=== PATIENT | male | born 1990 | race Caucasian/White ===

== ENCOUNTER 2019-05-18 09:36 | Inpatient (IN) | payer OTHER, SELFPAY ==
[2019-05-18] MEDS ORDERED: HYDROmorphone 0.5 MG/0.5 ML SYRINGE ONE ×2 (09:43)
[2019-05-18] MEDS ORDERED: Adacel (T-DAP) 0.5 ML SYRINGE ONE (09:45)
[2019-05-18 09:57] LABS: #Basophils 0.1 thou/uL (0.0-0.2); #Eosinphils 0.2 thou/uL (0.0-0.7); #Lymphocytes 1.8 thou/uL (1.20-3.40); #Monocytes 0.9 thou/uL (0.11-0.59); #Neutrophils 16.5 thou/uL (1.40-6.50); %Basophils 0.3 % (0.0-1.0); %Eosinophils 1.1 % (0.0-10.0); %Lymphocytes 9.4 % (21.0-51.0); %Monocytes 4.7 % (0.0-10.0); %Neutrophils 84.5 % (42.0-75.0); Hemoglobin 15.8 g/dL (14.0-18.0); Mean Corpuscular HGB CONC 32.5 g/dL (32.0-36.0); Mean Corpuscular Hemoglobin 29.1 pg (27.0-31.0); Mean Corpuscular Volume 89.6 fL (78.0-98.0); Mean Platelet Volume 7.9 fL (7.4-10.4); Platelet Count 319 thou/uL (130-400); RBC Distribution Width 11.9 % (11.5-14.5); Red Blood Cell (RBC) Count 5.44 mill/uL (4.70-6.10); White Blood Cell (WBC) Count 19.6 thou/uL (4.8-10.8)
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
[2019-05-18 10:15] LABS: ALT (SGPT) 70 U/L (8-55); AST (SGOT) 43 U/L (5-34); Albumin 4.5 g/dL (3.5-5.0); Alkaline Phosphatase 85 U/L (40-110); Anion Gap 13 mmol/L (10-20); BUN (Urea Nitrogen) 17 mg/dL (8.9-20.6); Bilirubin, Total 0.4 mg/dL (0.2-1.2); Calc. Creatinine Clearance 0 mL/min (70-130); Calcium 8.9 mg/dL (7.8-10.44); Carbon Dioxide 22 mmol/L (22-29); Chloride 108 mmol/L (98-107); Estimated GFR-MDRD Greater than 90; Globulin 2.7 g/dL (2.4-3.5); Glucose 105 mg/dL (70-105); Potassium 4.4 mmol/L (3.5-5.1); Protein, Total 7.2 g/dL (6.0-8.3); Sodium 139 mmol/L (136-145)
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
[2019-05-18] MEDS ORDERED: Lidocaine 1% w/Epinephrine 1:100K 20 ML VIAL ONE (11:32)
[2019-05-18] MEDS ORDERED: Lidocaine 1% (PF) 30 ML VIAL ONE (11:50)
[2019-05-18] MEDS ORDERED: Sodium Chloride For Inhalation 0.9% 3 ML NEB ONE (12:05)
[2019-05-18] MEDS ORDERED: Bacitracin 1 PK ONE (12:20)
[2019-05-18] MEDS ORDERED: Proparacaine 0.5% Opth 15 ML BOT ONE ×2 (12:35→12:45)
[2019-05-18] MEDS ORDERED: Fluorescein Opthalmic Strip ONE ×2 (12:35→12:45)
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
[2019-05-18] MEDS ORDERED: traMADol HCl 50 MG TAB PO PRN (13:17)
[2019-05-18] MEDS ORDERED: Promethazine HCl 25 MG/ML VIAL IM PRN ×2 (13:17)
[2019-05-18] MEDS ORDERED: Ondansetron PF 4 MG/2 ML Vial IVP PRN (13:17)
[2019-05-18] MEDS ORDERED: Dextrose 5% in Water 1,000 ML IV PRN (13:17)
[2019-05-18] MEDS ORDERED: hydrALAZINE 20 MG/ML VIAL SLOW IVP PRN (13:17)
[2019-05-18] MEDS ORDERED: Dextrose 50% Abboject 50 ML SYRINGE SLOW IVP PRN (13:17)
[2019-05-18] MEDS ORDERED: traMADol HCl 50 MG TAB ONE (13:59)
[2019-05-18] MEDS ORDERED: Acetaminophen 500 MG TAB ONE (13:59)
[2019-05-18] MEDS ORDERED: Scopolamine 1.5 mg/72 hour Patch TD SCH (14:00)
[2019-05-18] MEDS: traMADol HCl 50 MG TAB PO PRN ×2 (14:01→19:40)
[2019-05-18] MEDS: Acetaminophen 500 MG TAB PO SCH ×2 (14:02→20:02)
[2019-05-18] MEDS: Sodium Chloride 0.9% 1,000 ML IV SCH ×2 (14:05→22:24)
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
--- NOTE | 2019-05-18 17:16 | PDOC.OP ---
Operative Note - Operative Note Operative Note: Procedure Name: Laceration Repair Indication: Reduce Risk of Infection Location: Left Upper Extremity (Triceps Region) Pre-Procedure Diagnosis: Laceration Post-Procedure Diagnosis: Repaired Laceration PROCEDURE: The appropriate timeout was taken. The area was prepped and draped in the usual sterile fashion. Local anesthesia was achieved using 40 cc of Lidocaine 1% with epinephrine. The wound was copiously irrigated. 4 2-0 Vicryl subcutaneous sutures were placed in order to approximate the subcutaneous tissue and 7 3-0 Nylon simple interrupted sutures were placed to approximate the epidermal tissue. Estimated blood loss was less than 20 mL. An antimicrobial salve was applied to the area and a non-adherent dressing was placed immediately over the laceration repair site, followed by a pressure dressing. The patient tolerated the procedure well without complications.
--- NOTE | 2019-05-18 19:16 | CT ---
CT Brain WO Con: 05/18/2019 6:00 PM CLINICAL HISTORY: Follow-up intracranial hemorrhage. IMAGING TECHNIQUE: Multiple CT images were obtained of the brain without IV contrast. COMPARISON: Prior CT the brain dated May 18, 2019 at 9:54 AM FINDINGS: Brain: Small punctate contusions involving the lateral aspect of the left temporal lobe appear stabl e. Small amount of pneumocephalus overlying the left temporal bone fracture of appears similar appearing. Small extra-axial hemorrhage seen along the anterior parafalcine region appears similar. Ventricles: Normal. No hydrocephalus.. Skull: Comminuted fracture involving the left temporal bone appears similar.. Visualized Paranasal sinuses: Mucosal thickening of the ethmoid air cells and right frontal sinus yasmeen ear similar.. Mastoid air cells:Clear. Extracranial soft tissues:The scalp contusion overlying left temporal region and left parietal region appears similar. IMPRESSION: Stable examination. Parenchymal contusions involving lateral aspect of the left temporal lobe appears stable. Left temporal bone fracture with adjacent pneumocephalus is similar appearing. Extra-axial hemorrhage seen along the anterior parafalcine region of the frontal lobes appear similar . Stable paranasal sinus disease
[2019-05-18 19:34] VITALS: BMI 36.6
[2019-05-18] MEDS: Cyclobenzaprine 10 MG TAB PO PRN (19:40)
[2019-05-18] MEDS: Famotidine 20 MG TAB PO SCH (19:40)
[2019-05-18] MEDS ORDERED: Gabapentin 300 MG CAP PO SCH ×2 (22:03→22:30)
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
[2019-05-19] MEDS: traMADol HCl 50 MG TAB PO SCH ×4 (01:51→21:01)
[2019-05-19] MEDS: Acetaminophen 500 MG TAB PO SCH ×4 (01:51→21:01)
[2019-05-19 05:35] LABS: #Eosinphils 0.1 thou/uL (0.0-0.7); #Lymphocytes 1.4 thou/uL (1.20-3.40); #Monocytes 0.7 thou/uL (0.11-0.59); #Neutrophils 7.6 thou/uL (1.40-6.50); %Basophils 0.2 % (0.0-1.0); %Eosinophils 0.5 % (0.0-10.0); %Lymphocytes 14.4 % (21.0-51.0); %Monocytes 7.2 % (0.0-10.0); %Neutrophils 77.6 % (42.0-75.0); Hemoglobin 13.1 g/dL (14.0-18.0); Mean Corpuscular HGB CONC 33.8 g/dL (32.0-36.0); Mean Corpuscular Hemoglobin 29.7 pg (27.0-31.0); Mean Corpuscular Volume 87.9 fL (78.0-98.0); Mean Platelet Volume 7.6 fL (7.4-10.4); Platelet Count 242 thou/uL (130-400); RBC Distribution Width 11.8 % (11.5-14.5); White Blood Cell (WBC) Count 9.8 thou/uL (4.8-10.8)
[2019-05-19 06:02] LABS: Anion Gap 10 mmol/L (10-20); BUN (Urea Nitrogen) 11 mg/dL (8.9-20.6); Calc. Creatinine Clearance 215 mL/min (70-130); Calcium 8.3 mg/dL (7.8-10.44); Carbon Dioxide 24 mmol/L (22-29); Chloride 104 mmol/L (98-107); Estimated GFR-MDRD Greater than 90; Glucose 100 mg/dL (70-105); Potassium 3.9 mmol/L (3.5-5.1); Sodium 134 mmol/L (136-145)
[2019-05-19] MEDS: Sodium Chloride 0.9% 1,000 ML IV SCH (08:10)
[2019-05-19] MEDS: Famotidine 20 MG TAB PO SCH ×2 (08:12→21:01)
[2019-05-19] MEDS: Cyclobenzaprine 10 MG TAB PO PRN (08:12)
[2019-05-19] MEDS: Ondansetron ODT 4 MG TAB PO PRN (17:08)
[2019-05-19] MEDS: Gabapentin 300 MG CAP PO SCH (21:00)
[2019-05-20] MEDS: traMADol HCl 50 MG TAB PO SCH ×2 (02:40→08:16)
[2019-05-20] MEDS: Acetaminophen 500 MG TAB PO SCH ×2 (02:41→08:16)
[2019-05-20] MEDS ORDERED: Senokot 8.6 MG TAB PO PRN (07:42)
[2019-05-20] MEDS: Famotidine 20 MG TAB PO SCH (08:17)
[2019-05-20] MEDS: Gabapentin 300 MG CAP PO SCH (08:17)
[2019-05-20] MEDS ORDERED: Polyethylene Glycol 3350 17 GM Packet PO SCH (09:00)
[2019-05-20 11:30] VITALS: BP 127/74; TEMP 99
[2019-05-20] MEDS: Ondansetron ODT 4 MG TAB PO PRN (13:04)
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
== END 2019-05-20 14:30 | disposition home or self-care (01) | DRG 84 ==
LOC: ERS 09:36 → ERHOLD 11:54 → IMCU/EMU 18:25 → SURG A 05-19 12:42
PROVIDERS: ADMIT Surgery; ATTEND Surgery
PROC: 0JQF3ZZ Repair Left Upper Arm Subcutaneous Tissue and Fascia, Percutaneous Approach (ICD-10-PCS; principal; 2019-05-19)
DX: S06.5X9A Traumatic subdural hemorrhage with loss of consciousness of unspecified duration, initial encounter (principal); S01.01XA Laceration without foreign body of scalp, initial encounter; S02.19XA Other fracture of base of skull, initial encounter for closed fracture; S02.119A Unspecified fracture of occiput, initial encounter for closed fracture; F17.210 Nicotine dependence, cigarettes, uncomplicated; R40.2412 Glasgow coma scale score 13-15, at arrival to emergency department; S01.82XA Laceration with foreign body of other part of head, initial encounter; G93.89 Other specified disorders of brain; S41.112A Laceration without foreign body of left upper arm, initial encounter; V64.5XXA Driver of heavy transport vehicle injured in collision with heavy transport vehicle or bus in traffic accident, initial encounter; Z88.0 Allergy status to penicillin; Z98.52 Vasectomy status
CPT/HCPCS: 36415; 70450; 71260; 72125; 74177; 80048; 80053; 82550; 85025; 90471; 90715; 93005; 96361; 96365; 96375; G0390; J0690; J1170; J2001; J2405; J2550; Q0162